=== PATIENT | female | born 1980 | race Caucasian/White ===

== ENCOUNTER 2019-02-25 16:02 | Outpatient (CLI) | payer OTHER ==
[2019-02-25 16:33] LABS: APPEARANCE,URINE CLOUDY; BILIRUBIN,URINE NEGATIVE (NEGATIVE); COLOR,URINE YELLOW; GLUCOSE, URINE NEGATIVE (NEGATIVE); KETONES,URINE NEGATIVE (NEGATIVE); LEUKOCYTE ESTERASE,URINE LARGE (NEGATIVE); NITRITE,URINE NEGATIVE (NEGATIVE); PROTEIN,URINE NEGATIVE (NEGATIVE); UROBILINOGEN,URINE NEGATIVE mg/dL (<2.0)
[2019-02-25 16:49] LABS: URINE AMPHETAMINES SCREEN NEGATIVE; URINE BENZODIAZEPINES SCREEN NEGATIVE; URINE COCAINE SCREEN NEGATIVE; URINE MARIJUANA (THC) SCREEN NEGATIVE; URINE METHADONE SCREEN NEGATIVE; URINE PHENCYCLIDINE SCREEN NEGATIVE
[2019-02-25 16:55] LABS: UR PRO/CREAT RATIO RESULT 0.2 mg/mg (0.0-0.2); URINE CREATININE 81.2 mg/dL (16-327); URINE PROTEIN 17.7 mg/dL (<12)
[2019-02-25 17:02] LABS: URINE BARBITURATES SCREEN NEGATIVE
[2019-02-25 17:05] LABS: ABSOLUTE BASOPHILS # (AUTO) 0.1 10^3/uL (0.0-0.2); ABSOLUTE EOSINOPHILS # (AUTO) 0.1 10^3/uL (0.0-0.6); ABSOLUTE LYMPHOCYTES (AUTO) 1.1 10^3/uL (0.5-4.7); ABSOLUTE MONOCYTES (AUTO) 0.8 10^3/uL (0.1-1.4); ABSOLUTE NEUT (AUTO) 8.4 10^3/uL (1.7-8.2); BASOPHILS % (AUTO) 0.6 % (0-2); EOSINOPHILS % (AUTO) 0.6 % (0-6); HEMATOCRIT 36.4 % (36.0-47.0); HEMOGLOBIN 12.2 g/dL (12.0-15.5); LYMPHOCYTES % (AUTO) 10.7 % (13-45); MEAN CORPUSCULAR HEMOGLOBIN 28.6 pg (27.0-33.4); MEAN CORPUSCULAR HGB CONC 33.4 g/dL (32.0-36.0); MEAN CORPUSCULAR VOLUME 86 fl (80-97); MONOCYTES % (AUTO) 7.3 % (3-13); PLATELET COUNT 223 10^3/uL (150-450); RED BLOOD COUNT 4.26 10^6/uL (3.72-5.28); RED CELL DISTRIBUTION WIDTH 13.5 % (11.5-14.0); SEGMENTED NEUTROPHILS % (AUTO) 80.8 % (42-78); TOTAL CELLS COUNTED % (AUTO) 100 %; WHITE BLOOD COUNT 10.3 10^3/uL (4.0-10.5)
[2019-02-25 17:21] LABS: ALBUMIN 3.4 g/dL (3.5-5.0); ALKALINE PHOSPHATASE 172 U/L (38-126); ANION GAP 8 (5-19); ASPARTATE AMINO TRANSFERASE 20 U/L (14-36); BILIRUBIN,DIRECT 0.2 mg/dL (0.0-0.4); BILIRUBIN,TOTAL 0.3 mg/dL (0.2-1.3); BLOOD UREA NITROGEN 9 mg/dL (7-20); CALCIUM 9.1 mg/dL (8.4-10.2); CARBON DIOXIDE 23 mmol/L (22-30); CHLORIDE 105 mmol/L (98-107); GLUCOSE 94 mg/dL (75-110); POTASSIUM 4.8 mmol/L (3.6-5.0); TOTAL PROTEIN 6.2 g/dL (6.3-8.2); URIC ACID 4.7 mg/dL (2.5-7.0)
--- NOTE | 2019-02-25 18:27 | Non Stress Test Report ---
Non Stress Test Datetime Report Generated by CPN: 02/25/2019 18:27 DEMOGRAPHIC Test Number: 1 EGA NST: 36.4 INDICATION Indication for Study: Ordered by Provider Indication for Study (NST) Other: AMA; PRE-E W/U MONITORING Monitor Explained: Monitor Explained; Test Explained; Patient Verbalized Understanding Time on Monitor: 02/25/2019 16:19 Time off Monitor: 02/25/2019 16:40 NST Duration: 21 NST INTERVENTIONS NST Interventions: PO Hydration; Reposition Patient; Other NST Interventions Other: Snack Physician Notified NST: Dr. Mills BABY A: [id number] BABY A Movement : Present Contraction Frequency : 0 FHR Baseline : 140 Accelerations : 15X15 Decelerations : None Variability : Moderate 6-25bpm NST Review: Meets Criteria for Reactive NST NST Review and Verified By : KALYN Buchanan NST Results: Reactive NST REPORT Report Trigger: Send Report
== END 2019-02-25 18:17 | disposition home or self-care (01) ==
LOC: LC 16:02
PROVIDERS: ATTEND Obstetrics & Gynecology Gynecology
PROC: 4A1HXCZ Monitoring of Products of Conception, Cardiac Rate, External Approach (ICD-10-PCS; principal; 2019-02-25)
DX: O14.93 Unspecified pre-eclampsia, third trimester (principal); Z3A.36 36 weeks gestation of pregnancy
CPT/HCPCS: 36415; 59025; 80053; 80307; 81001; 82570; 83615; 84156; 84550; 85025

== ENCOUNTER 2019-02-26 18:35 | Inpatient (IN) | payer OTHER ==
[2019-02-26] MEDS ORDERED: ACETAMINOPHEN 325 MG TABLET ONE (18:55)
[2019-02-26] MEDS ORDERED: ACETAMINOPHEN 325 MG TABLET PO ONE (18:56)
[2019-02-26 19:38] LABS: URINE PROTEIN 12.8 mg/dL (<12)
[2019-02-26 19:39] LABS: 24 HOUR URINE PROTEIN RESULT 174 mg/day (42-225)
[2019-02-26] MEDS ORDERED: ACETAMINOPHEN 325 MG TABLET PO PRN (20:29)
[2019-02-26] MEDS ORDERED: ZOLPIDEM TARTRATE 5 MG TABLET PO PRN (20:29)
[2019-02-26] MEDS ORDERED: GLYBURIDE 5 MG TABLET ONE ×2 (20:49→20:56)
[2019-02-26] MEDS ORDERED: NIFEDIPINE 30 MG TAB.ER.24 PO ONE (20:49)
[2019-02-26 20:54] LABS: ABSOLUTE EOSINOPHILS # (AUTO) 0.1 10^3/uL (0.0-0.6); ABSOLUTE LYMPHOCYTES (AUTO) 1.3 10^3/uL (0.5-4.7); ABSOLUTE MONOCYTES (AUTO) 0.8 10^3/uL (0.1-1.4); ABSOLUTE NEUT (AUTO) 7.7 10^3/uL (1.7-8.2); BASOPHILS % (AUTO) 0.4 % (0-2); EOSINOPHILS % (AUTO) 1.2 % (0-6); HEMATOCRIT 34.6 % (36.0-47.0); HEMOGLOBIN 11.8 g/dL (12.0-15.5); MEAN CORPUSCULAR HEMOGLOBIN 29.1 pg (27.0-33.4); MEAN CORPUSCULAR HGB CONC 34.1 g/dL (32.0-36.0); MEAN CORPUSCULAR VOLUME 85 fl (80-97); MONOCYTES % (AUTO) 8.3 % (3-13); PLATELET COUNT 214 10^3/uL (150-450); RED BLOOD COUNT 4.05 10^6/uL (3.72-5.28); RED CELL DISTRIBUTION WIDTH 13.8 % (11.5-14.0); SEGMENTED NEUTROPHILS % (AUTO) 77.1 % (42-78); TOTAL CELLS COUNTED % (AUTO) 100 %
[2019-02-27 06:53] LABS: HEMATOCRIT 34.8 % (36.0-47.0); HEMOGLOBIN 11.8 g/dL (12.0-15.5); MEAN CORPUSCULAR HEMOGLOBIN 29.1 pg (27.0-33.4); MEAN CORPUSCULAR HGB CONC 33.8 g/dL (32.0-36.0); MEAN CORPUSCULAR VOLUME 86 fl (80-97); PLATELET COUNT 188 10^3/uL (150-450); RED BLOOD COUNT 4.04 10^6/uL (3.72-5.28); RED CELL DISTRIBUTION WIDTH 13.5 % (11.5-14.0); WHITE BLOOD COUNT 8.4 10^3/uL (4.0-10.5)
[2019-02-27 07:19] LABS: ALBUMIN 3.2 g/dL (3.5-5.0); ALKALINE PHOSPHATASE 156 U/L (38-126); ANION GAP 9 (5-19); ASPARTATE AMINO TRANSFERASE 18 U/L (14-36); BILIRUBIN,DIRECT 0.3 mg/dL (0.0-0.4); BILIRUBIN,TOTAL 0.3 mg/dL (0.2-1.3); BLOOD UREA NITROGEN 8 mg/dL (7-20); CARBON DIOXIDE 22 mmol/L (22-30); CHLORIDE 106 mmol/L (98-107); GLUCOSE 98 mg/dL (75-110); POTASSIUM 4.3 mmol/L (3.6-5.0); TOTAL PROTEIN 6.1 g/dL (6.3-8.2)
--- NOTE | 2019-02-27 09:07 | PDOC DISCHARGE SUMMARY ---
General - Admit/Disc Date/PCP Admission Date/Primary Care Provider: 02/26/19 20:18 LINNEA VALDEZ MD Discharge Date: 02/27/19 - Discharge Diagnosis (1) Is this a current diagnosis for this admission?: Yes (2) Hypertension affecting in third trimester Is this a current diagnosis for this admission?: Yes - Additional Information Discharge Diet: As Tolerated Discharge Activity: Activity As Tolerated, Balance Activity w/Rest Prescriptions: Nifedipine [Procardia XL 30 mg Tablet] 30 mg PO DAILY #30 tab.er.24 Home Medications: Glyburide [Diabeta 5 mg Tablet] 7.5 mg PO DAILY 02/25/19 Vit No.130/Iron/Folic [ Vitamins] 1 each PO DAILY 02/25/19 Nifedipine [Procardia XL 30 mg Tablet] 30 mg PO DAILY #30 tab.er.24 02/27/19 History of Present Illness Patient complains of: feels much better today. History of Present Illness: KRIS HARO is a 38 year old female @ 36 6/7 wks with mild gestational hypertension and A2DM c/o lightheadness overnight which she states has resolved. bps reviewed and are stable and in good ranges. 24 hour urine protein is 174. Physical Exam - Physical Exam Vital Signs: Temp Pulse Resp BP Pulse Ox 97.7 F 86 16 126/76 H 98 02/27/19 04:12 02/27/19 04:12 02/27/19 04:12 02/27/19 04:12 02/27/19 04:12 Intake & Output 02/26/19 02/27/19 02/28/19 06:59 06:59 06:59 Intake Total 300 Balance 300 Weight 122.4 kg General appearance: PRESENT: no acute distress, cooperative GI/Abdominal exam: PRESENT: soft - gravid, nontender Result Laboratory Results: 02/27/19 06:28 02/27/19 06:28 02/26/19 02/26/19 02/26/19 18:53 20:35 20:35 WBC 10.0 RBC 4.05 Hgb 11.8 L Hct 34.6 L MCV 85 MCH 29.1 MCHC 34.1 RDW 13.8 Plt Count 214 Seg Neutrophils % 77.1 Lymphocytes % 13.0 Monocytes % 8.3 Eosinophils % 1.2 Basophils % 0.4 Absolute Neutrophils 7.7 Absolute Lymphocytes 1.3 Absolute Monocytes 0.8 Absolute Eosinophils 0.1 Absolute Basophils 0.0 Sodium Potassium Chloride Carbon Dioxide Anion Gap BUN Creatinine Est GFR ( Amer) Est GFR (Non-Af Amer) Glucose Uric Acid Calcium Total Bilirubin AST Alkaline Phosphatase Total Protein Albumin Ur 24 Hour Volume 1360 Ur Total Protein 24 Hr 174 Blood Type A POSITIVE Antibody Screen NEGATIVE 02/27/19 02/27/19 06:28 06:28 WBC 8.4 RBC 4.04 Hgb 11.8 L Hct 34.8 L MCV 86 MCH 29.1 MCHC 33.8 RDW 13.5 Plt Count 188 Seg Neutrophils % Lymphocytes % Monocytes % Eosinophils % Basophils % Absolute Neutrophils Absolute Lymphocytes Absolute Monocytes Absolute Eosinophils Absolute Basophils Sodium 136.8 L Potassium 4.3 Chloride 106 Carbon Dioxide 22 Anion Gap 9 BUN 8 Creatinine 0.68 Est GFR ( Amer) > 60 Est GFR (Non-Af Amer) > 60 Glucose 98 Uric Acid 4.0 Calcium 9.0 Total Bilirubin 0.3 AST 18 Alkaline Phosphatase 156 H Total Protein 6.1 L Albumin 3.2 L Ur 24 Hour Volume Ur Total Protein 24 Hr Blood Type Antibody Screen Plan Discharge Plan: modified bedrest at home. plan to continue until at leasat 39 wks unless condition worsens and earlier delivery becomes indicated. did d/w pt and that delivery plans would also take favorable cervix into consideration in order to increase chances for vaginal delivery rather than operative. voice understanding. Time Spent: Less than 30 Minutes Acute Heart Failure - Is this a Heart Failure Patient?: No
[2019-02-27 09:19] VITALS: BP 139/86
[2019-02-27] MEDS ORDERED: GLYBURIDE 5 MG TABLET PO SCH (10:00)
[2019-02-27] MEDS ORDERED: NIFEDIPINE 30 MG TAB.ER.24 PO SCH (10:00)
== END 2019-02-27 10:32 | disposition home or self-care (01) | DRG 833 ==
LOC: LC 18:35 → LR 20:18 → 2S 22:01
PROVIDERS: ADMIT Obstetrics & Gynecology; ATTEND Obstetrics & Gynecology
DX: O13.3 Gestational [pregnancy-induced] hypertension without significant proteinuria, third trimester (principal); Z3A.36 36 weeks gestation of pregnancy
CPT/HCPCS: 36415; 59025; 80053; 83615; 84156; 84550; 85025; 85027; 86592; 86850; 86900; 86901; J3490

== ENCOUNTER 2019-03-01 16:27 | Outpatient (CLI) | payer OTHER ==
--- NOTE | 2019-03-01 16:40 | Non Stress Test Report ---
Non Stress Test Datetime Report Generated by CPN: 03/01/2019 16:40 DEMOGRAPHIC EGA NST: 36.5 INDICATION Indication for Study: Other Indication for Study (NST) Other: LC MONITORING Monitor Explained: Monitor Explained; Test Explained; Patient Verbalized Understanding Time on Monitor: 02/26/2019 18:51 Time off Monitor: 02/26/2019 19:12 NST Duration: 21 NST INTERVENTIONS NST Interventions: PO Hydration Physician Notified NST: Dr Xiao BABY A: [id number] BABY A Movement : Present Contraction Frequency : irritability FHR Baseline : 130 Accelerations : 15X15 Decelerations : None Variability : Moderate 6-25bpm NST Review: Meets Criteria for Reactive NST NST Review and Verified By : al jordan NST Results: Reactive NST REPORT Report Trigger: Send Report
--- NOTE | 2019-03-01 17:29 | Non Stress Test Report ---
Non Stress Test Datetime Report Generated by CPN: 03/01/2019 17:28 DEMOGRAPHIC EGA NST: 37.1 INDICATION Indication for Study: Ordered by Provider Indication for Study (NST) Other: repeat from the office MONITORING Monitor Explained: Monitor Explained; Test Explained; Patient Verbalized Understanding Time on Monitor: 03/01/2019 16:39 Time off Monitor: 03/01/2019 17:21 NST Duration: 42 NST INTERVENTIONS NST Interventions: PO Hydration; Reposition Patient Physician Notified NST: K Hooker CNM BABY A Movement : Present Contraction Frequency : 0 FHR Baseline : 125 Accelerations : 15X15 Decelerations : None Variability : Moderate 6-25bpm NST Review: Meets Criteria for Reactive NST NST Review and Verified By : Alanna Camp RNC NST Results: Reactive NST REPORT Report Trigger: Send Report
== END 2019-03-01 17:35 | disposition home or self-care (01) ==
LOC: LC 16:27
PROVIDERS: ATTEND Obstetrics & Gynecology
PROC: 4A1HXCZ Monitoring of Products of Conception, Cardiac Rate, External Approach (ICD-10-PCS; principal; 2019-03-01)
DX: O09.523 Supervision of elderly multigravida, third trimester (principal); Z3A.37 37 weeks gestation of pregnancy
CPT/HCPCS: 59025

== ENCOUNTER 2019-09-30 21:02 | Emergency (ER) | payer OTHER ==
[2019-09-30] MEDS ORDERED: ASPIRIN 81 MG TABLET, CHEWABLE PO ONE (21:28)
--- NOTE | 2019-09-30 21:28 | ER Document Report ---
ED Medical Screen (RME) - General Chief Complaint: Chest Pain Stated Complaint: CHEST PAINS Time Seen by Provider: 09/30/19 21:22 Primary Care Provider: LINNEA VALDEZ MD [Primary Care Provider] - Follow up as needed Mode of Arrival: Ambulatory Information source: Patient Notes: 38-year-old female presented to ED for complaint of chest pain for the last week and a half. He does have a history of mitral valve prolapse. As not had the repair surgery yet. He states she did have gestational hypertension about 6 months ago. She states she took a cardio 30 mg about 2 hours ago. She states she was prescribed these after for her high blood pressure. She did take her off of it after her because her blood pressure did settle down she thought this may help her high blood pressure and chest pain. She states she has pain on both sides sometimes a go straight to the center. States her blood pressure was higher at home before she took the Procardia and the pain is decreased now too. I have greeted and performed a rapid initial assessment of this patient. A comprehensive ED assessment and evaluation of the patient, analysis of test results and completion of medical decision making process will be conducted by an additional ED providers. TRAVEL OUTSIDE OF THE [place] IN LAST 30 DAYS: No - Related Data Allergies/Adverse Reactions: No Known Allergies Allergy (Verified 03/01/19 16:50) Physical Exam - Vital signs Vitals: Temp Pulse Resp BP Pulse Ox 98.2 F 81 16 133/80 H 100 09/30/19 21:18 09/30/19 21:18 09/30/19 21:18 09/30/19 21:18 09/30/19 21:18 Course - Vital Signs Vital signs: Temp Pulse Resp BP Pulse Ox 98.2 F 81 16 133/80 H 100 09/30/19 21:18 09/30/19 21:18 09/30/19 21:18 09/30/19 21:18 09/30/19 21:18 Doctor's Discharge - Discharge Referrals: LINNEA VALDEZ MD [Primary Care Provider] - Follow up as needed
--- NOTE | 2019-09-30 21:47 | EKG REPORT ---
SEVERITY:- NORMAL ECG - SINUS RHYTHM : Confirmed by: Megha Zaldivar MD 30-Sep-2019 21:46:08
--- NOTE | 2019-09-30 22:00 | RADIOLOGY REPORT (SQ) ---
EXAM DESCRIPTION: PA and lateral radiographs of the chest CLINICAL HISTORY: 38 years Female, chest pain COMPARISON: None. FINDINGS: Lungs: Lungs are clear. No pneumonia or edema. No pneumothorax or pleural effusion. Mediastinum: Cardiac and mediastinal silhouette are normal. Bones: Osseous structures are normal. IMPRESSION: Unremarkable radiographs of the chest
[2019-09-30 22:22] LABS: ABSOLUTE EOSINOPHILS # (AUTO) 0.2 10^3/uL (0.0-0.6); ABSOLUTE LYMPHOCYTES (AUTO) 2.2 10^3/uL (0.5-4.7); ABSOLUTE MONOCYTES (AUTO) 0.7 10^3/uL (0.1-1.4); ABSOLUTE NEUT (AUTO) 6.7 10^3/uL (1.7-8.2); BASOPHILS % (AUTO) 0.3 % (0-2); EOSINOPHILS % (AUTO) 2.2 % (0-6); HEMATOCRIT 35.2 % (36.0-47.0); HEMOGLOBIN 11.4 g/dL (12.0-15.5); LYMPHOCYTES % (AUTO) 22.4 % (13-45); MEAN CORPUSCULAR HEMOGLOBIN 25.1 pg (27.0-33.4); MEAN CORPUSCULAR HGB CONC 32.5 g/dL (32.0-36.0); MEAN CORPUSCULAR VOLUME 77 fl (80-97); MONOCYTES % (AUTO) 6.9 % (3-13); PLATELET COUNT 274 10^3/uL (150-450); RED BLOOD COUNT 4.56 10^6/uL (3.72-5.28); RED CELL DISTRIBUTION WIDTH 15.5 % (11.5-14.0); SEGMENTED NEUTROPHILS % (AUTO) 68.2 % (42-78); TOTAL CELLS COUNTED % (AUTO) 100 %; WHITE BLOOD COUNT 9.8 10^3/uL (4.0-10.5)
[2019-09-30 22:40] LABS: ALBUMIN 4.4 g/dL (3.5-5.0); ALKALINE PHOSPHATASE 113 U/L (38-126); ANION GAP 9 (5-19); ASPARTATE AMINO TRANSFERASE 19 U/L (14-36); BILIRUBIN,TOTAL 0.3 mg/dL (0.2-1.3); BLOOD UREA NITROGEN 12 mg/dL (7-20); CALCIUM 9.2 mg/dL (8.4-10.2); CARBON DIOXIDE 28 mmol/L (22-30); CHLORIDE 103 mmol/L (98-107); GLUCOSE 95 mg/dL (75-110); POTASSIUM 4.3 mmol/L (3.6-5.0); TOTAL PROTEIN 7.6 g/dL (6.3-8.2)
[2019-09-30] MEDS ORDERED: ACETAMINOPHEN 325 MG TABLET PO ONE (23:03)
--- NOTE | 2019-09-30 23:05 | ER Document Report ---
ED Cardiac - General Chief Complaint: Chest Wall Pain Stated Complaint: CHEST PAINS Time Seen by Provider: 09/30/19 22:55 Primary Care Provider: LINNEA VALDEZ MD [ACTIVE STAFF] - Follow up as needed CHELI FAY MD [ACTIVE STAFF] - Follow up as needed JAD WHITE MD [ACTIVE STAFF] - Follow up as needed Mode of Arrival: Ambulatory Notes: Patient presents complaining of chest pain off and on for the past 2 weeks. Patient states she will occasionally feel lightheaded. Patient states that her blood pressure has been running elevated 150s over 90s at home. Patient had a history of previous PIH and had leftover Procardia that she did take in an attempt to treat her symptoms this evening. Patient denies any cough cold symptoms nausea or vomiting. Patient also complains of frontal headache off and on for the past 2 weeks. TRAVEL OUTSIDE OF THE [place] IN LAST 30 DAYS: No - HPI Patient complains to provider of: denies: Palpitations, Shortness of breath Is the pain a: New problem Chest pain location: Other - Right and left upper chest area Quality of pain: Stabbing Severity now: None Severity at worst: Moderate Pain level currently: Denies Cardiac risk factors: denies: Smoker, Dyslipidemia Positive cardiac history: No Associated symptoms: Lightheaded. 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 denies: Fever, Recent illness EENT: No symptoms reported Cardiovascular: Chest pain, Lightheaded Respiratory: No symptoms reported. denies: Cough, Short of breath Gastrointestinal: Nausea. denies: Abdominal pain, Vomiting Genitourinary: No symptoms reported Female Genitourinary: No symptoms reported Musculoskeletal: No symptoms reported. denies: Back pain Skin: No symptoms reported Hematologic/Lymphatic: No symptoms reported Neurological/Psychological: Headaches. denies: Weakness Physical Exam - Vital signs Vitals: Temp Pulse Resp BP Pulse Ox 98.2 F 81 16 133/80 H 100 09/30/19 21:18 09/30/19 21:18 09/30/19 21:18 09/30/19 21:18 09/30/19 21:18 - General General appearance: Appears well, Alert In distress: None - HEENT Head: Normocephalic, Atraumatic Eyes: Normal Conjunctiva: Normal Eyelashes: Normal Pupils: PERRL External canal: Normal Tympanic membrane: Normal Sinus: Normal Nasal: Normal Mouth/Lips: Normal Pharynx: Normal. No: Erythema, Exudate, Potential airway comprom. Neck: Normal, Supple. No: Brudzinski, Lymphadenopathy, Meningismus - Respiratory Respiratory status: No respiratory distress Chest status: Nontender Breath sounds: Normal Chest palpation: Normal - Cardiovascular Rhythm: Regular Heart sounds: S1 appreciated, S2 appreciated Murmur: No - Abdominal Inspection: Normal Distension: No distension Tenderness: Nontender - Back Back: Normal, Nontender. No: CVA tenderness - Extremities General upper extremity: Normal inspection, Normal ROM General lower extremity: Normal inspection, Normal ROM - Neurological Neuro grossly intact: Yes Cognition: Normal Orientation: AAOx4 Agus Coma Scale Eye Opening: Spontaneous [place] Coma Scale Verbal: Oriented Agus Coma Scale Motor: Obeys Commands Agus Coma Scale Total: 15 - Psychological Associated symptoms: Normal affect, Normal mood - Skin Skin Temperature: Warm Skin Moisture: Dry Skin Color: Normal Course - Re-evaluation Re-evalutation: 10/01/19 01:18 Patient resting in the room without complaint. Patient denies any headache pain at this time or chest discomfort. Presentation of chest pain in an otherwise well appearing patient. Low clinical suspicion for ACS given clinical history, exam, EKG without ST elevations or depressions, and negative initial troponin. HEART score less than or equal to 3. PE also seems unlikely given clinical history, absence of tachycardia or dyspnea. Patient is PERC criteria negative. CXR without evidence of pneumothorax or pneumonia. Chest pain in a patient without evidence of cardiac or other serious etiology on workup today. I discussed with patient that, based on their age, risk factors and emergency department testing today, the likelihood that their symptoms are related to a heart attack is very low. The patient demonstrates decision making capacity and has verbalized an understanding of these risks to me. Based on this, the patient has chosen to follow-up as an outpatient. Usual chest pain return precautions reviewed. The patient states understanding and agreement with this plan. The patient presents with headache without signs of CHAR FILTER TANK TENDER bleed, stroke, infection, or other serious etiology. The patient is neurologically intact. Given the extremely low risk of these diagnoses further testing and evaluation for these possibilities does not appear to be indicated at this time. The patient has been instructed to return if the symptoms worsen or change in any way. - Vital Signs Vital signs: Temp Pulse Resp BP Pulse Ox 97.7 F 81 14 115/55 L 99 10/01/19 01:43 09/30/19 21:18 10/01/19 01:01 10/01/19 01:01 10/01/19 01:01 - Laboratory Result Diagrams: 09/30/19 21:49 09/30/19 21:49 Laboratory results interpreted by me: 09/30/19 21:49 Hgb 11.4 L Hct 35.2 L MCV 77 L MCH 25.1 L RDW 15.5 H 10/01/19 01:17 Labs- Entire Visit 09/30/19 09/30/19 09/30/19 21:49 21:49 21:49 WBC 9.8 RBC 4.56 Hgb 11.4 L Hct 35.2 L MCV 77 L MCH 25.1 L MCHC 32.5 RDW 15.5 H Plt Count 274 Lymph % (Auto) 22.4 [place] % (Auto) 6.9 Eos % (Auto) 2.2 Baso % (Auto) 0.3 Absolute Neuts (auto) 6.7 Absolute Lymphs (auto) 2.2 Absolute Monos (auto) 0.7 Absolute Eos (auto) 0.2 Absolute Basos (auto) 0.0 Seg Neutrophils % 68.2 Sodium 139.5 Potassium 4.3 Chloride 103 Carbon Dioxide 28 Anion Gap 9 BUN 12 Creatinine 0.96 Est GFR ( Amer) > 60 Est GFR (MDRD) Non-Af > 60 Glucose 95 Calcium 9.2 Total Bilirubin 0.3 Direct Bilirubin 0.0 Neonat Total Bilirubin Not Reportable Neonat Direct Bilirubin Not Reportable Neonat Indirect Bili Not Reportable AST 19 ALT 13 Alkaline Phosphatase 113 Troponin I < 0.012 Total Protein 7.6 Albumin 4.4 - Diagnostic Test Radiology reviewed: Reports reviewed Discharge - Discharge Clinical Impression: Headache Qualifiers: Headache type: unspecified Headache chronicity pattern: unspecified pattern Intractability: not intractable Qualified Code(s): R51 - Headache Chest pain Qualifiers: Chest pain type: unspecified Qualified Code(s): R07.9 - Chest pain, unspecified Condition: Stable Disposition: HOME, SELF-CARE Instructions: Anti-Inflammatory Medication ([facility]), Chest Pain of Unclear Cause ([facility]), Headache ([facility]) Additional Instructions: Return immediately for any new or worsening symptoms Followup with your primary care provider, call tomorrow to make a followup appointment Follow-up with a log operations coordinator for recheck, call tomorrow for an appointment Referrals: LINNEA VALDEZ MD [ACTIVE STAFF] - Follow up as needed JAD WHITE MD [ACTIVE STAFF] - Follow up as needed CHELI FAY MD [ACTIVE STAFF] - Follow up as needed
[2019-10-01 01:43] VITALS: BP 115/55
== END 2019-10-01 02:01 | disposition home or self-care (01) ==
LOC: ER 21:02
DX: R07.9 Chest pain, unspecified (principal); R51 Headache; R42 Dizziness and giddiness; R11.0 Nausea
CPT/HCPCS: 36415; 71046; 80053; 84484; 85025; 93005; 93010; 99284

== ENCOUNTER 2020-07-26 08:39 | Emergency (ER) | payer OTHER ==
[2020-07-26] MEDS ORDERED: METHYLPREDNISOLONE INJ 125 MG/2 ML SDV IV ONE (10:14)
[2020-07-26] MEDS ORDERED: IPRATROPIUM/ALBUTEROL 0.5-2.5 MG/3 ML AMPUL NEB ONE (10:14)
[2020-07-26] MEDS ORDERED: BENZONATATE 100 MG CAPSULE PO ONE (10:15)
--- NOTE | 2020-07-26 10:15 | ER Document Report ---
ED Respiratory Problem - General Chief Complaint: Breathing Difficulty Stated Complaint: CONGESTION/COUGH/SOB/FEVER/NAUSEA Time Seen by Provider: 07/26/20 09:45 Notes: Patient is a 39-year-old female who presents the emergency department with a cough, congestion, fever, and not feeling well for the past 6 days. 4 days ago, she was tested for COVID-19 and had a rapid and send out test, which were both negative. Patient had a telehealth visit with her primary care provider and she was started on azithromycin 3 days ago. Patient states that she still does not feel well. States that she does feel short of breath. TRAVEL OUTSIDE OF THE [place] IN LAST 30 DAYS: No - Related Data Allergies/Adverse Reactions: No Known Allergies Allergy (Verified 03/01/19 16:50) Past Medical History - Social History Smoking Status: Never Smoker Frequency of alcohol use: None Drug Abuse: None Family History: Reviewed & Not Pertinent Psychiatric Medical History: Reports: Hx Anxiety Past Surgical History: Reports: Hx Dilation and Curettage Review of Systems - Review of Systems Notes: REVIEW OF SYSTEMS: CONSTITUTIONAL : Denies recent illness. Denies recent unintentional weight loss. Denies fever, chills, or sweats. EENT: Denies eye, ear, throat, or mouth pain, discharge, or symptoms. Denies nasal or sinus congestion. CARDIOVASCULAR: Denies chest pain. RESPIRATORY: See HPI. GASTROINTESTINAL: Denies nausea, vomiting, and diarrhea. Denies abdominal pain. Denies constipation. GENITOURINARY: Denies difficulty urinating, burning, blood in urine, urgency or frequency. MUSCULOSKELETAL: Denies neck and back pain. Denies joint pain or swelling. SKIN: Denies rash, itchiness, or lesions HEMATOLOGIC : Denies easy bruising or bleeding. LYMPHATIC: Denies swollen, painful, enlarged glands. NEUROLOGICAL: Denies no numbness or tingling denies weakness. Denies headache. Denies altered mental status. Denies alteration in speech. PSYCHIATRIC: Denies stress, anxiety, alteration in sleep patterns, or depr ession. All other systems reviewed and negative. Physical Exam - Vital signs Vitals: Temp Pulse Resp BP Pulse Ox 98.7 F 80 16 140/81 H 100 07/26/20 08:43 07/26/20 08:43 07/26/20 08:43 07/26/20 08:43 07/26/20 08:43 - Notes Notes: PHYSICAL EXAMINATION: GENERAL: Appears well, healthy, well-nourished, no acute distress. HEAD: Normocephalic, atraumatic. EYES: PERRL, conjunctiva normal, all extraocular movements intact, sclera nonicteric ENT: Moist mucous membranes. NECK: Supple, no noticeable swelling, redness, rash. Normal range of motion. LUNGS: Clear inspiratory phase and diminished expiratory phase. CARDIOVASCULAR: S1-S2, regular rate, regular rhythm. Radial pulses 2+, normal. ABDOMEN: Normoactive bowel sounds. Soft, nontender, no guarding, no rebound tenderness, and no masses palpated. EXTREMITIES: Normal strength and range of motion, no pitting or edema. No cyanosis. NEUROLOGICAL: Moves all extremities upon command. Strength 5/5 in all extremities. PSYCH: Normal mood, normal affect. SKIN: Warm, dry. No rash, lesions, ulcerations noted. Normal skin turgor. Course - Re-evaluation Re-evalutation: 07/26/20 13:00 Hematology is unremarkable. D-dimer is negative. Chemistries are also unremarkable. Patient states that she feels better after receiving DuoNeb treatments. The patient was evaluated during the global COVID-19 pandemic and that diagnosis was suspected/considered upon their initial presentation. Their evaluation, treatment and testing was consistent with current guidelines for patients who present with complaints or symptoms that may be related to COVID- 19. Follow-up precautions were given. Verbal discharge instructions were given to the patient. They verbalized understanding. They are stable for discharge. - Vital Signs Vital signs: Temp Pulse Resp BP Pulse Ox 98.7 F 80 16 140/81 H 100 07/26/20 08:43 07/26/20 08:43 07/26/20 08:43 07/26/20 08:43 07/26/20 08:43 - Laboratory Results Result Diagrams: 07/26/20 10:20 07/26/20 10:20 Laboratory Results Interpreted: 07/26/20 10:20 MCV 79 L MCH 26.3 L RDW 14.6 H Critical Laboratory Results Reviewed: No Critical Results - Radiology Results Critical Radiology Results Reviewed: No Critical Results Discharge - Discharge Clinical Impression: Cough Condition: Stable Disposition: HOME, SELF-CARE Additional Instructions: As a person under investigation for COVID-19, the [place] Department of Health and Human Services (division on public health) advises you to adhere to the following guidance until your test results are reported to you. If your test result is positive, you will receive additional information from your provider and your local health department at that time. Remain at home until you are cleared by the health provider or public health authorities. Keep a log of visitors to your home, notify any visitors to your home of your isolation status. If you plan to move to a new address or leave the [facility], notify the local health department in your County. Call your Doctor or seek care if you have an urgent medical need. Before seeking medical care, call him to get instructions from the provider before arriving at the medical office, clinic, or hospital. Notify them that you are being tested for the virus (COVID-19) so that arrangements can be made, as necessary, to prevent transmission to others in the healthcare setting. Next, notify the local health department in your [facility]. If you test positive for Covid 19, take multivitamin daily. Make sure that has zinc, vitamin C, and B vitamins in it. Prescriptions: Prednisone [Deltasone 20 mg Tablet] 3 tab PO DAILY 5 Days #15 tablet Albuterol Sulfate [Proair HFA Inhalation Aerosol 8.5 gm MDI] 2 puff IH Q4H PRN #1 mdi PRN Reason: Inhaler, Assist Devices [Space Chamber] 1 each MC ASDIR PRN #1 spacer PRN Reason: Benzonatate [Tessalon Perles 100 mg Capsule] 100 mg PO Q8HP PRN #40 capsule PRN Reason:
--- NOTE | 2020-07-26 10:16 | RADIOLOGY REPORT (SQ) ---
EXAM DESCRIPTION: CHEST SINGLE VIEW IMAGES COMPLETED DATE/TIME: 07/26/2020 9:37 am REASON FOR STUDY: shortness of breath, cough COMPARISON: 09/30/2019 EXAM PARAMETERS: NUMBER OF VIEWS: One view. TECHNIQUE: Single frontal radiographic view of the chest acquired. RADIATION DOSE: NA LIMITATIONS: None. FINDINGS: LUNGS AND PLEURA: No opacities, masses or pneumothorax. No pleural effusion. MEDIASTINUM AND HILAR STRUCTURES: No masses. Contour normal. HEART AND VASCULAR STRUCTURES: Heart normal in size. Normal vasculature. BONES: No acute findings. HARDWARE: None in the chest. OTHER: No other significant finding. IMPRESSION: NO ACUTE RADIOGRAPHIC FINDING IN THE CHEST. TECHNICAL DOCUMENTATION: JOB ID: [id number] 2010 [employer]- All Rights Reserved Reading location - IP/workstation name: [email or web address]
[2020-07-26 10:42] LABS: ABSOLUTE EOSINOPHILS # (AUTO) 0.3 10^3/uL (0.0-0.6); ABSOLUTE LYMPHOCYTES (AUTO) 1.6 10^3/uL (0.5-4.7); ABSOLUTE MONOCYTES (AUTO) 0.5 10^3/uL (0.1-1.4); BASOPHILS % (AUTO) 0.5 % (0-2); EOSINOPHILS % (AUTO) 3.5 % (0-6); HEMATOCRIT 37.6 % (36.0-47.0); HEMOGLOBIN 12.6 g/dL (12.0-15.5); LYMPHOCYTES % (AUTO) 19.2 % (13-45); MEAN CORPUSCULAR HEMOGLOBIN 26.3 pg (27.0-33.4); MEAN CORPUSCULAR HGB CONC 33.4 g/dL (32.0-36.0); MEAN CORPUSCULAR VOLUME 79 fl (80-97); MONOCYTES % (AUTO) 6.1 % (3-13); PLATELET COUNT 258 10^3/uL (150-450); RED BLOOD COUNT 4.78 10^6/uL (3.72-5.28); RED CELL DISTRIBUTION WIDTH 14.6 % (11.5-14.0); SEGMENTED NEUTROPHILS % (AUTO) 70.7 % (42-78); TOTAL CELLS COUNTED % (AUTO) 100 %; WHITE BLOOD COUNT 8.5 10^3/uL (4.0-10.5)
[2020-07-26 10:54] LABS: ALBUMIN 4.3 g/dL (3.5-5.0); ALKALINE PHOSPHATASE 87 U/L (38-126); ANION GAP 7 (5-19); ASPARTATE AMINO TRANSFERASE 23 U/L (14-36); BILIRUBIN,DIRECT 0.1 mg/dL (0.0-0.4); BILIRUBIN,TOTAL 0.5 mg/dL (0.2-1.3); BLOOD UREA NITROGEN 11 mg/dL (7-20); CALCIUM 9.3 mg/dL (8.4-10.2); CARBON DIOXIDE 27 mmol/L (22-30); CHLORIDE 104 mmol/L (98-107); GLUCOSE 100 mg/dL (75-110); POTASSIUM 4.7 mmol/L (3.6-5.0); TOTAL PROTEIN 7.6 g/dL (6.3-8.2)
[2020-07-26 13:37] VITALS: BP 126/76
== END 2020-07-26 13:37 | disposition home or self-care (01) ==
LOC: ER 08:39
DX: R05 Cough (principal); R06.02 Shortness of breath; Z20.822 Contact with and (suspected) exposure to COVID-19
CPT/HCPCS: 94640; 99284; 96374; 36415; 85025; 80053; 85379; 71045; J2930